=== PATIENT | female | born 1940 | race Caucasian/White ===

== ENCOUNTER 2022-07-28 12:36 | Emergency (ER) | payer MEDICARE, MEDICAID ==
[~2022-07-28] VITALS: Ht 162.6 cm; Wt 100.0 kg
[~2022-07-28 12:36] MED LIST: ATEN-169 PO; LISI20TA28 PO
[2022-07-28 13:04] LABS: BASOPHILS % (AUTO) 0.5 % (0-1); EOSINOPHILS # (AUTO) 0.2 X10'3 (0-0.9); EOSINOPHILS % (AUTO) 3.9 % (0-6); HEMATOCRIT 33.4 % (35.0-45.0); LYMPHOCYTES # (AUTO) 1.3 X10'3 (1.1-4.8); LYMPHOCYTES % (AUTO) 30.1 % (21-51); MEAN CORPUSCULAR HEMOGLOBIN 27.8 PG (27.0-31.0); MEAN CORPUSCULAR HGB CONC 32.9 g/dL (33.0-36.5); MEAN CORPUSCULAR VOLUME 84.7 FL (78-98); MEAN PLATELET VOLUME 9.3 FL (7.4-10.4); MONOCYTES # (AUTO) 0.4 X10'3 (0-0.9); MONOCYTES % (AUTO) 8.9 % (2-12); NEUTROPHILS # (AUTO) 2.5 X10'3 (1.8-7.7); NEUTROPHILS % (AUTO) 56.6 % (42-75); PLATELET COUNT 167 X10'3 (140-440); RED BLOOD COUNT 3.95 X10'6 (4.20-5.60); RED CELL DISTRIBUTION WIDTH 14.2 % (11.5-14.5); WHITE BLOOD COUNT 4.4 X10'3 (4.5-11.0)
[2022-07-28 13:21] LABS: ALANINE AMINOTRANSFERASE 12 U/L (12-78); ALBUMIN 3.5 G/DL (3.4-5.0); ALKALINE PHOSPHATASE 82 IU/L (46-116); ANION GAP 9 (8-16); ASPARTATE AMINO TRANSFERASE 10 U/L (10-37); BILIRUBIN,TOTAL 0.2 MG/DL (0.1-1.0); BLOOD UREA NITROGEN 22 MG/DL (7-18); BUN/CREATININE RATIO 22.4 (6.6-38.0); CALCIUM 9.4 MG/DL (8.5-10.1); CHLORIDE 108 MMOL/L (99-107); CREATININE 0.98 MG/DL (0.40-0.90); GLUCOSE 112 MG/DL (70-104); POTASSIUM 3.3 MMOL/L (3.5-5.1); SODIUM 144 MMOL/L (135-145); TOTAL CARBON DIOXIDE 27.1 MMOL/L (24-32); TOTAL PROTEIN 6.9 G/DL (6.4-8.2); eGFR 54 ML/MIN
[2022-07-28] MEDS ORDERED: cloNIDine 0.1 mg tablet PO ONE (13:40)
[2022-07-28] MEDS ORDERED: HYDROcodone/acetaminophen 5mg/325mg tablet PO ONE (13:40)
[2022-07-28] MEDS ORDERED: furosemide 10 MG/1 ML 10ml inj IV ONE (13:40)
[2022-07-28] MEDS ORDERED: potassium Cl 20 mEq SR tablet PO STA (14:14)
[2022-07-28 14:28] LABS: CLARITY,URINE CLEAR (Clear); GLUCOSE, URINE NEGATIVE (Neg); KETONES,URINE NEGATIVE (Neg); LEUKOCYTE ESTERASE ,URINE SMALL (Neg); NITRITES, URINE NEGATIVE (Neg); OCCULT BLOOD,URINE TRACE-INTACT (Neg); PROTEIN,URINE NEGATIVE (Neg); UROBILINOGEN,URINE 0.2 E.U/dL (0.2-1.0)
[2022-07-28 14:33] LABS: COLOR,URINE STRAW (Yellow); UA COLLECTION TYPE CLN CATCH MIDSTREAM
[2022-07-28] MEDS ORDERED: POTA-192 PO ×2 (14:33)
[2022-07-28] MEDS ORDERED: FURO-150 PO ×2 (14:33)
[2022-07-28 14:34] LABS: SQUAMOUS EPITHELIAL CELL,UR FEW /LPF (FEW)
[2022-07-28 14:35] LABS: BACTERIA,URINE FEW /HPF (Neg); MUCUS STRANDS FEW /LPF (Neg); RBC,URINE 0-2 /HPF (0-2); WBC,URINE 0-4 /HPF (0-4)
[2022-07-28 15:14] VITALS: BP 187/76
--- NOTE | 2022-07-28 15:16 | NUR ---
SPOKE WITH CLARKE, FRIEND WHO STATES SHE WILL SEND SOMEONE TO PICK PATIENT UP DOPE EDGER IS NOT ANSWERING PHONE/MESSAGES. PATIENT AWARE.
[2022-07-29] MEDS ORDERED: DILT-103 PO (19:37)
[2022-07-29] MEDS ORDERED: NITR0.4T48 PO (19:37)
[2022-07-29] MEDS ORDERED: CETI10TA14 PO (19:37)
[2022-07-29] MEDS ORDERED: LOSA25TA41 PO (19:37)
[2022-07-29] MEDS ORDERED: DICL100G30 TOP (19:37)
[2022-07-29] MEDS ORDERED: ONDA-103 PO (19:37)
[2022-07-29] MEDS ORDERED: CLON0.1T2 PO (19:37)
[2022-07-29] MEDS ORDERED: FURO20TA4 PO (19:37)
[2022-07-29] MEDS ORDERED: ATOR20TA66 PO (19:37)
[2022-07-29] MEDS ORDERED: IBUP-1984 PO (19:37)
[2022-07-29] MEDS ORDERED: OMEP40CA21 PO (19:37)
[2022-07-29] MEDS ORDERED: POTA-206 PO (19:37)
== END 2022-07-28 15:16 | disposition home or self-care (01) ==
LOC: ER 12:37
DX: R07.89 Other chest pain (principal); R06.02 Shortness of breath; E87.6 Hypokalemia; I10 Essential (primary) hypertension; R60.0 Localized edema; Z88.0 Allergy status to penicillin; Z88.2 Allergy status to sulfonamides; Z88.5 Allergy status to narcotic agent; Z79.899 Other long term (current) drug therapy
CPT/HCPCS: 96374; 99285; J1940; 36415; 71045; 80053; 81001; 83880; 84484; 85025; 87088; 93005

== ENCOUNTER 2022-07-29 10:18 | Inpatient (IN) | payer MEDICARE, MEDICAID ==
[~2022-07-29] VITALS: Ht 149.9 cm; Wt 95.5 kg
[~2022-07-29 10:18] MED LIST changes: +FURO-150 PO; +POTA-192 PO
--- NOTE | 2022-07-29 10:49 | NUR ---
Contacted Poison Control. Concern for hypotension. Recommends 12-24hrs of observation. Symptomatic and supportive care for hypotension and atropine for symptomatic bradycardia.
[2022-07-29 10:50] LABS: BASOPHILS % (AUTO) 0.5 % (0-1); EOSINOPHILS # (AUTO) 0.2 X10'3 (0-0.9); EOSINOPHILS % (AUTO) 3.8 % (0-6); HEMATOCRIT 32.4 % (35.0-45.0); HEMOGLOBIN 10.6 g/dl (12.0-16.0); LYMPHOCYTES # (AUTO) 1.7 X10'3 (1.1-4.8); LYMPHOCYTES % (AUTO) 31.5 % (21-51); MEAN CORPUSCULAR HEMOGLOBIN 27.5 PG (27.0-31.0); MEAN CORPUSCULAR HGB CONC 32.6 g/dL (33.0-36.5); MEAN CORPUSCULAR VOLUME 84.4 FL (78-98); MEAN PLATELET VOLUME 9.5 FL (7.4-10.4); MONOCYTES # (AUTO) 0.6 X10'3 (0-0.9); MONOCYTES % (AUTO) 11.4 % (2-12); NEUTROPHILS # (AUTO) 2.8 X10'3 (1.8-7.7); NEUTROPHILS % (AUTO) 52.8 % (42-75); PLATELET COUNT 169 X10'3 (140-440); RED BLOOD COUNT 3.84 X10'6 (4.20-5.60); RED CELL DISTRIBUTION WIDTH 14.7 % (11.5-14.5); WHITE BLOOD COUNT 5.3 X10'3 (4.5-11.0)
[2022-07-29 11:08] LABS: ALANINE AMINOTRANSFERASE 12 U/L (12-78); ALBUMIN 3.5 G/DL (3.4-5.0); ALBUMIN/GLOBULIN RATIO 1.1 (1.1-1.5); ALKALINE PHOSPHATASE 80 IU/L (46-116); ANION GAP 10 (8-16); ASPARTATE AMINO TRANSFERASE 11 U/L (10-37); BILIRUBIN,TOTAL 0.3 MG/DL (0.1-1.0); BLOOD UREA NITROGEN 26 MG/DL (7-18); BUN/CREATININE RATIO 14.6 (6.6-38.0); CALCIUM 9.2 MG/DL (8.5-10.1); CHLORIDE 107 MMOL/L (99-107); CREATININE 1.78 MG/DL (0.40-0.90); GLUCOSE 92 MG/DL (70-104); POTASSIUM 4.2 MMOL/L (3.5-5.1); SODIUM 144 MMOL/L (135-145); TOTAL CARBON DIOXIDE 26.9 MMOL/L (24-32); TOTAL PROTEIN 6.6 G/DL (6.4-8.2); eGFR 27 ML/MIN
[2022-07-29 11:15] LABS: MAGNESIUM 1.9 MG/DL (1.5-2.4)
[2022-07-29] MEDS ORDERED: magnesium hydroxide 30ml (MOM) UD suspension PO PRN (15:10)
[2022-07-29] MEDS ORDERED: magnesium 4gm in 100ml NS 100 ML IV PRN (15:10)
[2022-07-29] MEDS ORDERED: mag hydrox/Alum hydrox/simeth 30ml oral suspension PO PRN (15:10)
[2022-07-29] MEDS ORDERED: magnesium Cl slow-release 64mg tablet PO PRN (15:10)
[2022-07-29] MEDS ORDERED: acetaminophen 325mg tablet PO PRN (15:10)
[2022-07-29] MEDS ORDERED: potassium CL 10mEq/100ml bag 100 ML IV PRN (15:10)
[2022-07-29] MEDS ORDERED: HYDROcodone/acetaminophen 5mg/325mg tablet PO PRN (15:10)
[2022-07-29] MEDS ORDERED: ondansetron/PF 4mg/2ml inj IV PRN (15:10)
[2022-07-29] MEDS ORDERED: magnesium 2GM in 50ml NS 50 ML IV PRN (15:10)
[2022-07-29] MEDS ORDERED: POTASSIUM BICARB 20meq eff tab 20 MEQ TABLET.EFF PO PRN ×2 (15:10)
[2022-07-29] MEDS: normal saline 1000ml 1,000 ML IV SCH (15:54)
--- NOTE | 2022-07-29 16:45 | NUR ---
UPDATED POISON CONTROL. NO NEW RECOMMENDATIONS.
[2022-07-29] MEDS ORDERED: LOSA25TA41 PO (19:37)
[2022-07-29] MEDS ORDERED: POTA-206 PO (19:37)
[2022-07-29] MEDS ORDERED: OMEP40CA21 PO (19:37)
[2022-07-29] MEDS ORDERED: FURO20TA4 PO (19:37)
[2022-07-29] MEDS ORDERED: DILT-103 PO (19:37)
[2022-07-29] MEDS ORDERED: ONDA-103 PO (19:37)
[2022-07-29] MEDS ORDERED: ATOR20TA66 PO (19:37)
[2022-07-29] MEDS ORDERED: CLON0.1T2 PO (19:37)
[2022-07-29] MEDS ORDERED: IBUP-1984 PO (19:37)
[2022-07-29] MEDS ORDERED: CETI10TA14 PO (19:37)
[2022-07-29] MEDS ORDERED: NITR0.4T48 PO (19:37)
[2022-07-29] MEDS ORDERED: DICL100G30 TOP (19:37)
[2022-07-29] MEDS: K and/or MAG REPLACEMENT MC SCH (20:00)
[2022-07-29] MEDS: docusate sod 100mg capsule PO SCH (20:13)
--- NOTE | 2022-07-29 22:31 | NUR ---
Registration placed $2300 in 100.00 bills, + $2.00, + $2.00+ $15.00+ 30.00= Total 2349.00 with credit cards
--- NOTE | 2022-07-30 06:53 | NUR ---
Upon assessment this AM, pt is resting in hospital bed. Stable, VS WNL. IVF infusing @ 50 ml/hr. No complaints noted.
[2022-07-30] MEDS: K and/or MAG REPLACEMENT MC SCH (08:00)
[2022-07-30] MEDS ORDERED: enoxaparin 40mg/0.4ml syringe SUBCUT SCH (08:00)
[2022-07-30 08:16] LABS: BASOPHILS % (AUTO) 0.3 % (0-1); EOSINOPHILS # (AUTO) 0.2 X10'3 (0-0.9); EOSINOPHILS % (AUTO) 3.6 % (0-6); HEMATOCRIT 31.2 % (35.0-45.0); HEMOGLOBIN 10.6 g/dl (12.0-16.0); LYMPHOCYTES # (AUTO) 1.6 X10'3 (1.1-4.8); LYMPHOCYTES % (AUTO) 32.7 % (21-51); MEAN CORPUSCULAR HEMOGLOBIN 28.4 PG (27.0-31.0); MEAN CORPUSCULAR HGB CONC 33.8 g/dL (33.0-36.5); MEAN PLATELET VOLUME 10.1 FL (7.4-10.4); MONOCYTES # (AUTO) 0.3 X10'3 (0-0.9); NEUTROPHILS # (AUTO) 2.8 X10'3 (1.8-7.7); NEUTROPHILS % (AUTO) 56.4 % (42-75); PLATELET COUNT 166 X10'3 (140-440); RED BLOOD COUNT 3.72 X10'6 (4.20-5.60); RED CELL DISTRIBUTION WIDTH 14.4 % (11.5-14.5); WHITE BLOOD COUNT 4.9 X10'3 (4.5-11.0)
[2022-07-30] MEDS ORDERED: nitroGLYCERIN 0.4mg SUBLingual tab SL PRN (08:45)
[2022-07-30] MEDS ORDERED: ondansetron 4mg rapidly disintigrating tab PO PRN (08:45)
[2022-07-30 08:53] LABS: ALANINE AMINOTRANSFERASE 13 U/L (12-78); ALBUMIN 2.9 G/DL (3.4-5.0); ALBUMIN/GLOBULIN RATIO 0.9 (1.1-1.5); ALKALINE PHOSPHATASE 76 IU/L (46-116); ANION GAP 8 (8-16); ASPARTATE AMINO TRANSFERASE 10 U/L (10-37); BILIRUBIN,TOTAL 0.2 MG/DL (0.1-1.0); BLOOD UREA NITROGEN 32 MG/DL (7-18); BUN/CREATININE RATIO 25.2 (6.6-38.0); CALCIUM 9.4 MG/DL (8.5-10.1); CHLORIDE 110 MMOL/L (99-107); CREATININE 1.27 MG/DL (0.40-0.90); FERRITIN 124 NG/ML (8-252); GLUCOSE 93 MG/DL (70-104); MAGNESIUM 1.9 MG/DL (1.5-2.4); SODIUM 145 MMOL/L (135-145); TOTAL CARBON DIOXIDE 27.1 MMOL/L (24-32); eGFR 40 ML/MIN
[2022-07-30] MEDS: docusate sod 100mg capsule PO SCH (09:16)
[2022-07-30 09:37] LABS: % IRON SATURATION 25 % (11-46); IRON 40 UG/DL (49-151); TOTAL IRON BINDING CAPACITY 162 UG/DL (259-388)
[2022-07-30] MEDS: normal saline 1000ml 1,000 ML IV SCH (11:54)
--- NOTE | 2022-07-30 12:45 | NUR ---
CAREGIVER SP FERNANDES CONTACTED, PER MD REQUEST TO VERIFY LIVING ARRANGEMENT FOR PT AND HOW MUCH ASSISTANCE PT RECEIVES FROM CAREGIVER. MD NOTIFIED OF CAREGIVER'S RESPONSE. MD ORDERED A GAIT TEST AND STATES THAT IF PT IS STABLE WHILE AMBULATING WITH CANE OR WALKER, PT IS READY FOR DISCHARGE.
[2022-07-30 17:32] VITALS: BP 149/57
[2022-07-31] MEDS ORDERED: furosemide 20MG tablet PO SCH (08:00)
[2022-07-31] MEDS ORDERED: pantoprazole 40mg Tablet.DR PO SCH (08:00)
[2022-07-31] MEDS ORDERED: losartan 50mg tablet PO SCH (08:00)
[2022-07-31] MEDS ORDERED: cloNIDine 0.1 mg tablet PO SCH (08:00)
[2022-07-31] MEDS ORDERED: atorvastatin 20mg tablet PO SCH (08:00)
[2022-07-31] MEDS ORDERED: cetirizine 10mg tablet PO SCH (08:00)
== END 2022-07-30 15:00 | disposition home or self-care (01) | DRG 917 ==
LOC: ER 10:18 → ED HOLD 15:10
PROVIDERS: ADMIT Internal Medicine; ATTEND Internal Medicine
DX: T46.1X1A Poisoning by calcium-channel blockers, accidental (unintentional), initial encounter (principal); N17.0 Acute kidney failure with tubular necrosis; L03.116 Cellulitis of left lower limb; D64.9 Anemia, unspecified; F03.A0 Unspecified dementia, mild, without behavioral disturbance, psychotic disturbance, mood disturbance, and anxiety; I11.0 Hypertensive heart disease with heart failure; I50.9 Heart failure, unspecified; R00.1 Bradycardia, unspecified; M94.0 Chondrocostal junction syndrome [Tietze]; Z79.899 Other long term (current) drug therapy; Y92.89 Other specified places as the place of occurrence of the external cause; Z88.0 Allergy status to penicillin; Z88.5 Allergy status to narcotic agent; Z88.2 Allergy status to sulfonamides; Z88.8 Allergy status to other drugs, medicaments and biological substances
CPT/HCPCS: 36415; 71045; 80053; 81001; 82607; 82728; 83540; 83550; 83735; 83880; 84484; 85025; 87088; 93005; 99285; G0378; J1650; J1940; J7030

== ENCOUNTER 2022-08-23 21:21 | Emergency (ER) | payer MEDICARE, MEDICAID ==
[~2022-08-23] VITALS: Ht 162.6 cm; Wt 95.5 kg
[~2022-08-23 21:21] MED LIST changes: -ATEN-169 PO; +ATOR20TA66 PO; +CETI10TA14 PO; +CLON0.1T2 PO; +DICL100G30 TOP; +DILT-103 PO; -FURO-150 PO; +FURO20TA4 PO; +IBUP-1984 PO; -LISI20TA28 PO; +LOSA25TA41 PO; +NITR0.4T48 PO; +OMEP40CA21 PO; +ONDA-103 PO; -POTA-192 PO; +POTA-206 PO
[2022-08-24] MEDS: nitroGLYCERIN 0.4mg SUBLingual tab SL PRN ×2 (00:12→00:21)
--- NOTE | 2022-08-24 00:12 | NUR ---
PATIENT C/O SUDDEN ONSET CHEST PAIN WHEN SHE RETURNED TO BED FROM [facility]. STATES PAIN RATIATING TO HER THROAT ALSO HAS NAUSEA. EKG COMPLETED AND MD AWARE. REPORTED TO CARLOTA PRIMARY NURSE.
[2022-08-24 00:50] LABS: BASOPHILS % (AUTO) 0.7 % (0-1); EOSINOPHILS # (AUTO) 0.1 X10'3 (0-0.9); EOSINOPHILS % (AUTO) 1.5 % (0-6); HEMATOCRIT 30.2 % (35.0-45.0); HEMOGLOBIN 10.3 g/dl (12.0-16.0); LYMPHOCYTES # (AUTO) 1.4 X10'3 (1.1-4.8); LYMPHOCYTES % (AUTO) 25.3 % (21-51); MEAN CORPUSCULAR HEMOGLOBIN 28.2 PG (27.0-31.0); MEAN CORPUSCULAR VOLUME 82.8 FL (78-98); MEAN PLATELET VOLUME 9.6 FL (7.4-10.4); MONOCYTES # (AUTO) 0.4 X10'3 (0-0.9); MONOCYTES % (AUTO) 6.7 % (2-12); NEUTROPHILS # (AUTO) 3.6 X10'3 (1.8-7.7); NEUTROPHILS % (AUTO) 65.8 % (42-75); PLATELET COUNT 160 X10'3 (140-440); RED BLOOD COUNT 3.64 X10'6 (4.20-5.60); RED CELL DISTRIBUTION WIDTH 14.5 % (11.5-14.5); WHITE BLOOD COUNT 5.4 X10'3 (4.5-11.0)
[2022-08-24 00:56] LABS: ALANINE AMINOTRANSFERASE 12 U/L (12-78); ALBUMIN 3.3 G/DL (3.4-5.0); ALKALINE PHOSPHATASE 87 IU/L (46-116); ANION GAP 11 (8-16); ASPARTATE AMINO TRANSFERASE 15 U/L (10-37); BILIRUBIN,TOTAL 0.2 MG/DL (0.1-1.0); BLOOD UREA NITROGEN 19 MG/DL (7-18); BUN/CREATININE RATIO 19.8 (6.6-38.0); CALCIUM 9.5 MG/DL (8.5-10.1); CHLORIDE 107 MMOL/L (99-107); CREATININE 0.96 MG/DL (0.40-0.90); GLUCOSE 103 MG/DL (70-104); POTASSIUM 3.8 MMOL/L (3.5-5.1); SODIUM 141 MMOL/L (135-145); TOTAL CARBON DIOXIDE 23.1 MMOL/L (24-32); TOTAL PROTEIN 6.6 G/DL (6.4-8.2); eGFR 56 ML/MIN
[2022-08-24 01:02] LABS: ETHANOL < 0.010 GM/DL (0.0-0.010); MAGNESIUM 1.7 MG/DL (1.5-2.4)
--- NOTE | 2022-08-24 03:25 | NUR ---
ASSSUMED CARE OF PT. AFTER RECIEVING REPORT FROM CARLOTA
--- NOTE | 2022-08-24 04:32 | NUR ---
PT. ASSISTED TO BR VIA W/C TRANSFERS WITH MIN ASSIST. VOIDED AND HAD SM FORMED BM. BACK TO BED RESTING QUIETLY
[2022-08-24 06:26] VITALS: BP 159/65
== END 2022-08-24 06:36 | disposition home or self-care (01) ==
LOC: ER 21:21
DX: R07.9 Chest pain, unspecified (principal); I11.9 Hypertensive heart disease without heart failure; Z88.0 Allergy status to penicillin; Z88.2 Allergy status to sulfonamides; Z88.6 Allergy status to analgesic agent; Z88.5 Allergy status to narcotic agent; Z79.899 Other long term (current) drug therapy; Z79.1 Long term (current) use of non-steroidal anti-inflammatories (NSAID); Z79.2 Long term (current) use of antibiotics; S09.90XA Unspecified injury of head, initial encounter
CPT/HCPCS: 36415; 70450; 71045; 72125; 80053; 80320; 83735; 83880; 84484; 85025; 85610; 93005; 99285

== ENCOUNTER 2023-02-01 07:19 | Emergency (ER) | payer MEDICARE, MEDICAID ==
[~2023-02-01] VITALS: Ht 162.6 cm; Wt 93.0 kg
[2023-02-01] MEDS ORDERED: LIDOcaine Viscous 15ml cup TP ONE (08:45)
[2023-02-01] MEDS ORDERED: acetaminophen 325mg tablet PO ONE (08:50)
[2023-02-01 09:05] LABS: BASOPHILS % (AUTO) 0.9 % (0-1); EOSINOPHILS # (AUTO) 0.1 X10'3 (0-0.9); EOSINOPHILS % (AUTO) 2.4 % (0-6); HEMATOCRIT 29.4 % (35.0-45.0); HEMOGLOBIN 9.8 g/dl (12.0-16.0); LYMPHOCYTES # (AUTO) 0.9 X10'3 (1.1-4.8); LYMPHOCYTES % (AUTO) 16.3 % (21-51); MEAN CORPUSCULAR HEMOGLOBIN 27.8 PG (27.0-31.0); MEAN CORPUSCULAR HGB CONC 33.2 g/dL (33.0-36.5); MEAN CORPUSCULAR VOLUME 83.9 FL (78-98); MEAN PLATELET VOLUME 9.8 FL (7.4-10.4); MONOCYTES # (AUTO) 0.5 X10'3 (0-0.9); MONOCYTES % (AUTO) 9.8 % (2-12); NEUTROPHILS # (AUTO) 3.7 X10'3 (1.8-7.7); NEUTROPHILS % (AUTO) 70.6 % (42-75); PLATELET COUNT 211 X10'3 (140-440); RED BLOOD COUNT 3.51 X10'6 (4.20-5.60); WHITE BLOOD COUNT 5.3 X10'3 (4.5-11.0)
[2023-02-01 09:13] VITALS: BP 133/106
[2023-02-01 09:18] LABS: ALANINE AMINOTRANSFERASE 12 U/L (12-78); ALBUMIN 3.4 G/DL (3.4-5.0); ALKALINE PHOSPHATASE 70 IU/L (46-116); ANION GAP 7 (8-16); ASPARTATE AMINO TRANSFERASE 12 U/L (10-37); BILIRUBIN,TOTAL 0.3 MG/DL (0.1-1.0); BLOOD UREA NITROGEN 22 MG/DL (7-18); BUN/CREATININE RATIO 17.1 (10.0-20.0); CALCIUM 9.8 MG/DL (8.5-10.1); CHLORIDE 107 MMOL/L (99-107); CREATININE 1.29 MG/DL (0.40-0.90); GLUCOSE 105 MG/DL (70-104); POTASSIUM 4.3 MMOL/L (3.5-5.1); SODIUM 141 MMOL/L (135-145); TOTAL CARBON DIOXIDE 27.4 MMOL/L (24-32); TOTAL PROTEIN 6.8 G/DL (6.4-8.2); eGFR 39 ML/MIN
[2023-02-01] MEDS ORDERED: traMADol 50MG tablet PO ONE (09:50)
[2023-02-01] MEDS ORDERED: LIDO30CR TOP (10:21)
[2023-02-01] MEDS ORDERED: VITS42.53 TOP (14:06)
[2023-02-01] MEDS ORDERED: vitamin A & D ointment-NF 1 APPLIC TUBE TP ONE (14:10)
[2023-02-01] MEDS ORDERED: vitamin A & D ointment-NF 1 APPLIC TUBE TP SCH (14:10)
--- NOTE | 2023-02-01 15:37 | NUR ---
RESPONSIBILITY FORM FOR PT WAS COMPLETED BY ME. PAYMENT WAS APPROVED BY FABRICE (CNO) AND RIN (NURSING SUP).
--- NOTE | 2023-02-01 18:01 | NUR ---
Pt's caregiver Nava called to check on pt and requested update, as she is awaiting her return. Updated her on transport van situation, which was supposed to be here to p/u pt at 1730. Nava is planning to make her [facility] supervisor/port director aware of pt's edema and skin condition to obtain higher level care for her, and states that the pt does not listen to her when she instructs her to elevate her legs, etc. Still awaiting p/u by transport van. Pt is in [place] [facility].
== END 2023-02-01 19:05 | disposition home or self-care (01) ==
LOC: ER 07:19
DX: G89.29 Other chronic pain (principal); M79.605 Pain in left leg; I89.0 Lymphedema, not elsewhere classified; I10 Essential (primary) hypertension; M19.90 Unspecified osteoarthritis, unspecified site; Z88.0 Allergy status to penicillin; Z88.2 Allergy status to sulfonamides
CPT/HCPCS: 36415; 80053; 83880; 84145; 85025; 93971; 99284

== ENCOUNTER 2024-06-14 20:07 | Emergency (ER) | payer MEDICARE, MEDICAID ==
[~2024-06-14] VITALS: Ht 162.6 cm; Wt 90.0 kg
[~2024-06-14 20:07] MED LIST changes: -DICL100G30 TOP; +DICL100G59 TOP; +LIDO30CR TOP; +VITS42.53 TOP
[2024-06-14 20:13] VITALS: TEMP 98
[2024-06-14 21:50] LABS: BASOPHILS % (AUTO) 0.4 % (0-1); EOSINOPHILS # (AUTO) 0.2 X10'3 (0-0.9); EOSINOPHILS % (AUTO) 2.9 % (0-6); HEMATOCRIT 29.1 % (35.0-45.0); HEMOGLOBIN 9.8 g/dl (12.0-16.0); LYMPHOCYTES # (AUTO) 1.7 X10'3 (1.1-4.8); LYMPHOCYTES % (AUTO) 28.2 % (21-51); MEAN CORPUSCULAR HEMOGLOBIN 29.3 PG (27.0-31.0); MEAN CORPUSCULAR HGB CONC 33.6 g/dL (33.0-36.5); MEAN CORPUSCULAR VOLUME 87.1 FL (78-98); MEAN PLATELET VOLUME 9.9 FL (7.4-10.4); MONOCYTES # (AUTO) 0.5 X10'3 (0-0.9); MONOCYTES % (AUTO) 8.5 % (2-12); NEUTROPHILS # (AUTO) 3.5 X10'3 (1.8-7.7); PLATELET COUNT 188 X10'3 (140-440); RED BLOOD COUNT 3.35 X10'6 (4.20-5.60); RED CELL DISTRIBUTION WIDTH 15.1 % (11.5-14.5); WHITE BLOOD COUNT 5.9 X10'3 (4.5-11.0)
[2024-06-14 22:11] LABS: ALBUMIN 3.1 G/DL (3.4-5.0); ANION GAP 6 (8-16); BLOOD UREA NITROGEN 17 MG/DL (7-18); CALCIUM 9.5 MG/DL (8.5-10.1); CHLORIDE 110 MMOL/L (99-107); CREATININE 1.06 MG/DL (0.40-0.90); GLUCOSE 131 MG/DL (70-104); POTASSIUM 3.9 MMOL/L (3.5-5.1); PRO BRAIN NATRIURETIC PEPTIDE 508 PG/ML (0-450); SODIUM 143 MMOL/L (135-145); TOTAL CARBON DIOXIDE 26.6 MMOL/L (24-32); eCRCL 34 ML/MIN; eGFR 49 ML/MIN
[2024-06-14 23:31] LABS: BILIRUBIN,URINE NEGATIVE (Neg); CLARITY,URINE CLEAR (Clear); COLOR,URINE YELLOW (Yellow); GLUCOSE, URINE NEGATIVE (Neg); KETONES,URINE NEGATIVE (Neg); LEUKOCYTE ESTERASE ,URINE SMALL (Neg); NITRITES, URINE NEGATIVE (Neg); OCCULT BLOOD,URINE NEGATIVE (Neg); PH,URINE 6.5 (4.8-8.0); PROTEIN,URINE NEGATIVE (Neg); UROBILINOGEN,URINE 0.2 E.U/dL (0.2-1.0)
[2024-06-14 23:36] LABS: UA COLLECTION TYPE URINAL
[2024-06-14 23:39] LABS: BACTERIA,URINE FEW /HPF (Neg); MUCUS STRANDS NONE SEEN /LPF (Neg); RBC,URINE 0-2 /HPF (0-2); SQUAMOUS EPITHELIAL CELL,UR FEW /LPF (FEW); WBC,URINE 0-4 /HPF (0-4)
[2024-06-15] MEDS: HYDROcodone/acetaminophen 5mg/325mg tablet PO ONE (00:16)
[2024-06-15 00:21] VITALS: BP 158/86; PULSE 78; RESP 15; O2SAT 98
== END 2024-06-15 00:25 | disposition home or self-care (01) ==
LOC: ER 20:08
DX: S09.8XXA Other specified injuries of head, initial encounter (principal); I25.10 Atherosclerotic heart disease of native coronary artery without angina pectoris; I10 Essential (primary) hypertension; M19.90 Unspecified osteoarthritis, unspecified site; Z79.1 Long term (current) use of non-steroidal anti-inflammatories (NSAID); Z79.899 Other long term (current) drug therapy; Z88.0 Allergy status to penicillin; Z88.2 Allergy status to sulfonamides; Z88.8 Allergy status to other drugs, medicaments and biological substances; W18.39XA Other fall on same level, initial encounter; Y93.89 Activity, other specified; Y92.89 Other specified places as the place of occurrence of the external cause; Y99.8 Other external cause status
CPT/HCPCS: 36415; 70450; 72125; 80048; 81001; 83880; 84484; 85025; 93005; 99284

== ENCOUNTER 2024-11-23 11:33 | Emergency (ER) | payer MEDICARE, MEDICAID ==
[~2024-11-23] VITALS: Ht 162.6 cm; Wt 63.6 kg
[2024-11-23] MEDS ORDERED: CEPH-585 PO (14:56)
[2024-11-23 15:27] VITALS: BP 168/90; PULSE 68; RESP 16; TEMP 98.2; O2SAT 99
== END 2024-11-23 15:28 | disposition home or self-care (01) ==
LOC: ER 11:34
DX: R60.0 Localized edema (principal); I10 Essential (primary) hypertension; I25.10 Atherosclerotic heart disease of native coronary artery without angina pectoris; M19.90 Unspecified osteoarthritis, unspecified site; Z88.5 Allergy status to narcotic agent; Z88.0 Allergy status to penicillin; Z88.2 Allergy status to sulfonamides; Z88.6 Allergy status to analgesic agent; Z88.8 Allergy status to other drugs, medicaments and biological substances
CPT/HCPCS: 73590; 93971; 99284

== ENCOUNTER 2025-01-30 11:31 | Emergency (ER) | payer MEDICARE, MEDICAID ==
[~2025-01-30] VITALS: Ht 162.6 cm; Wt 76.0 kg
[2025-01-30] MEDS: acetaminophen 325mg tablet PO ONE (13:44)
[2025-01-30] MEDS: ondansetron/PF 4mg/2ml inj IV ONE (14:00)
[2025-01-30] MEDS: ondansetron 4mg rapidly disintigrating tab PO ONE (14:29)
[2025-01-30 15:41] VITALS: BP 167/62; PULSE 71; RESP 12; TEMP 98.5; O2SAT 98
== END 2025-01-30 15:40 | disposition home or self-care (01) ==
LOC: ER 11:32
DX: S00.83XA Contusion of other part of head, initial encounter (principal); I11.9 Hypertensive heart disease without heart failure; I25.10 Atherosclerotic heart disease of native coronary artery without angina pectoris; I48.91 Unspecified atrial fibrillation; M19.90 Unspecified osteoarthritis, unspecified site; Z88.0 Allergy status to penicillin; Z88.2 Allergy status to sulfonamides; Z88.5 Allergy status to narcotic agent; Z88.6 Allergy status to analgesic agent; Z88.8 Allergy status to other drugs, medicaments and biological substances; W18.30XA Fall on same level, unspecified, initial encounter; Y93.89 Activity, other specified; Y92.89 Other specified places as the place of occurrence of the external cause; Y99.8 Other external cause status
CPT/HCPCS: 70450; 72125; 93005; 99285; J2405

== ENCOUNTER 2025-05-08 09:34 | Outpatient (CLI) | payer MEDICARE, MEDICAID ==
--- NOTE | 2025-05-08 11:26 | VASCULAR REPORT ---
Left lower extremity venous duplex Clinical History: edema Comparison: VASC VL VENOUS on DOS: 11/23/24 Findings: Duplex Doppler evaluation of the deep venous system of the left lower extremity from the common femor al vein to the popliteal vein including color Doppler and spectral/pulsed waveform analysis was perfo rmed. The bilateral common femoral vein demonstrates appropriate compressibility and waveform variability. There is compressibility/patency of the great saphenous vein at the proximal thigh. The femoral vein demonstrates appropriate compressibility and waveform variability. The deep femoral vein demonstrates appropriate compressibility and waveform variability. The popliteal vein demonstrates appropriate compressibility and waveform variability. There is normal compressibility at the tibioperoneal trunk. Impression: No left femoropopliteal venous thrombosis. If clinical concern/symptoms persist or worsen, short-interval follow-up study is suggested.
--- NOTE | 2025-05-08 11:26 | RADIOLOGY REPORT ---
CLINICAL INDICATION: PAIN AND SWELLING LEFT FOOT TECHNIQUE: 3 radiographic views of the left foot were obtained. Comparison: None FINDINGS/IMPRESSION: There is no evidence of acute fracture or dislocation. The visualized joint space is well maintained. Significant soft tissue swelling about the left foot. The alignment is anatomical. There is no radiopaque foreign body.
== END 2025-05-08 23:59 | disposition home or self-care (01) ==
LOC: VAS 09:34
PROVIDERS: ATTEND Nurse Practitioner
DX: M79.89 Other specified soft tissue disorders (principal); M79.605 Pain in left leg
CPT/HCPCS: 73630; 93971